=== PATIENT | male | born 1965 | race American Indian/Alaskan Native ===

== ENCOUNTER 2017-10-23 03:26 | Emergency (ER) | payer OTHER ==
[~2017-10-23] VITALS: Ht 182.9 cm; Wt 111.0 kg
[2017-10-23] MEDS ORDERED: sulfamethoxazole/trimethoprim DS (800/160mg) tablet PO ONE (04:20)
[2017-10-23] MEDS ORDERED: bacitracin 15gm ointment TP ONE (04:20)
[2017-10-23] MEDS ORDERED: TETanus/Pertussis (Acell)/Diphther VAC/PF (Tdap-Adult) 0.5ml syringe IM ONE (04:20)
[2017-10-23] MEDS ORDERED: SULF1TAB49 PO (04:24)
[2017-10-23 04:39] VITALS: BP 128/78
== END 2017-10-23 04:43 | disposition home or self-care (01) ==
LOC: ER 03:26
DX: L08.9 Local infection of the skin and subcutaneous tissue, unspecified (principal); Z79.899 Other long term (current) drug therapy
CPT/HCPCS: 90471; 90715; 99284

== ENCOUNTER 2017-10-24 03:53 | Emergency (ER) | payer OTHER ==
[~2017-10-24] VITALS: Ht 188 cm; Wt 120.8 kg
[~2017-10-24 03:53] MED LIST: SULF1TAB49 PO
[2017-10-24 04:06] VITALS: BP 141/90
== END 2017-10-24 04:57 | disposition home or self-care (01) ==
LOC: ER 03:54
DX: L02.512 Cutaneous abscess of left hand (principal); L03.114 Cellulitis of left upper limb; Z91.018 Allergy to other foods; Z79.2 Long term (current) use of antibiotics
CPT/HCPCS: 87070; 87077; 87186; 99284

== ENCOUNTER 2017-12-22 20:47 | Emergency (ER) | payer MEDICAID, OTHER ==
[~2017-12-22] VITALS: Ht 182.9 cm; Wt 119.8 kg
[2017-12-22] MEDS ORDERED: POLOS LEFTEYE (22:52)
[2017-12-22 23:12] VITALS: BP 152/98
[2017-12-23] MEDS ORDERED: polymyxin B sulf/tmp ophth drops 10ml LEFTEYE SCH (08:00)
== END 2017-12-22 23:18 | disposition home or self-care (01) ==
LOC: ER 20:48
DX: H10.9 Unspecified conjunctivitis (principal)
CPT/HCPCS: 99283

== ENCOUNTER 2019-02-28 14:14 | Emergency (ER) | payer MEDICAID, OTHER ==
[~2019-02-28] VITALS: Ht 182.9 cm; Wt 110.0 kg
[2019-02-28] MEDS ORDERED: SULF1TAB49 PO (14:42)
[2019-02-28] MEDS ORDERED: CEPH500C5 PO (14:42)
[2019-02-28 15:06] VITALS: BP 134/69
== END 2019-02-28 15:05 | disposition home or self-care (01) ==
LOC: ER 14:14
DX: J34.0 Abscess, furuncle and carbuncle of nose (principal)
CPT/HCPCS: 99283

== ENCOUNTER 2020-05-25 06:53 | Emergency (ER) | payer MEDICAID, OTHER ==
[~2020-05-25] VITALS: Ht 182.9 cm; Wt 109.1 kg
[2020-05-25] MEDS ORDERED: albuterol 2.5 MG/3 ML nebule NEB ONE (07:00)
[2020-05-25] MEDS ORDERED: dexamethasone sod phosphate 10mg/ml inj IV STA (07:23)
[2020-05-25 08:06] LABS: BASOPHILS # (AUTO) 0.1 X10'3 (0-0.2); BASOPHILS % (AUTO) 0.4 % (0-1); EOSINOPHILS % (AUTO) 0.2 % (0-6); HEMATOCRIT 39.8 % (42.0-52.0); HEMOGLOBIN 13.3 g/dl (14.0-17.9); LYMPHOCYTES # (AUTO) 0.9 X10'3 (1.1-4.8); LYMPHOCYTES % (AUTO) 6.1 % (21-51); MEAN CORPUSCULAR HEMOGLOBIN 29.6 PG (27.0-31.0); MEAN CORPUSCULAR HGB CONC 33.5 g/dL (33.0-36.5); MEAN CORPUSCULAR VOLUME 88.5 FL (78-98); MEAN PLATELET VOLUME 8.1 FL (7.4-10.4); MONOCYTES # (AUTO) 0.8 X10'3 (0-0.9); MONOCYTES % (AUTO) 5.4 % (2-12); NEUTROPHILS # (AUTO) 13.2 X10'3 (1.8-7.7); NEUTROPHILS % (AUTO) 87.9 % (42-75); PLATELET COUNT 249 X10'3 (140-440); WHITE BLOOD COUNT 15.1 X10'3 (4.5-11.0)
[2020-05-25 08:07] LABS: PARTIAL THROMBOPLASTIN TIME 31 SECONDS (22-32)
[2020-05-25 08:10] LABS: ALANINE AMINOTRANSFERASE 145 U/L (12-78); ALBUMIN 2.6 G/DL (3.4-5.0); ALBUMIN/GLOBULIN RATIO 0.5 (1.1-1.5); ALKALINE PHOSPHATASE 110 IU/L (46-116); ANION GAP 20 (8-16); ASPARTATE AMINO TRANSFERASE 277 U/L (10-37); BILIRUBIN,TOTAL 1.9 MG/DL (0.1-1.0); BLOOD UREA NITROGEN 32 MG/DL (7-18); BUN/CREATININE RATIO 12.1 (5.4-32.0); CALCIUM 8.4 MG/DL (8.5-10.1); CHLORIDE 83 MMOL/L (99-107); CREATININE 2.65 MG/DL (0.60-1.10); GLUCOSE 190 MG/DL (70-104); POTASSIUM 4.3 MMOL/L (3.5-5.1); SODIUM 123 MMOL/L (135-145); TOTAL CARBON DIOXIDE 19.7 MMOL/L (24-32); TOTAL PROTEIN 7.6 G/DL (6.4-8.2); eGFR 25 ML/MIN
[2020-05-25 08:14] LABS: ABG BASE EXCESS -5.9 mmol/L (-2.0-2.0); ABG HCO3 18.9 mmol/L (22.0-26.0); ABG OXYGEN SATURATION 86.2 % (94-97); ABG PCO2 (T) 35.4 mmHg (35.0-48.0); ABG PO2 (T) 56.1 mmHg (75.0-100.0); ALLEN'S TEST POSITIVE; FCOHb 1.3 % (0.0-3.9); FLOW 15 L/min; FMetHb 0.3 % (0.0-1.5); FO2Hb 84.8 % (94-97); TOTAL HEMOGLOBIN 13.9 G/dl (14.0-18.0)
[2020-05-25 08:28] LABS: C-REACTIVE PROTEIN 29.05 MG/DL (0.0-0.5)
[2020-05-25] MEDS ORDERED: CefTRIAXone/D5W-Rocephin 1gm 50 ML IV ONE (08:45)
[2020-05-25] MEDS ORDERED: normal saline 1000ml 1,000 ML IV ONE (08:45)
[2020-05-25] MEDS ORDERED: azithromycin/NS 500mg/250ml 250 ML IV ONE (08:45)
[2020-05-25 08:49] LABS: LARGE PLATELETS FEW; NUCLEATED RED BLOOD CELLS 1 /100WBC (0-0); PLATELET ESTIMATE NORMAL; TOTAL CELLS COUNTED 100
[2020-05-25 08:58] LABS: D-DIMER > 35.20 MG/L FEU (0-0.50)
[2020-05-25 10:06] LABS: URINE AMPHETAMINE SCREEN POSITIVE (Neg); URINE BARBITUATE SCREEN NEGATIVE (Neg); URINE BENZODIAZEPINES SCREEN NEGATIVE (Neg); URINE CANNABINOID SCREEN NEGATIVE (Neg); URINE COCAINE SCREEN NEGATIVE (Neg); URINE METHADONE SCREEN NEGATIVE (Neg); URINE OPIATE SCREEN NEGATIVE (Neg); URINE PHENCYCLIDINE SCREEN NEGATIVE (Neg)
[2020-05-25 10:10] VITALS: BP 97/56
[2020-05-25] MEDS ORDERED: furosemide 20 MG/2 ML vial IV ONE (10:20)
[2020-05-25] MEDS ORDERED: furosemide 10 MG/1 ML 10ml inj IV ONE (10:20)
[2020-05-25] MEDS ORDERED: heparin 25,000 UNIT/250ml bag 250 ML IV SCH (10:25)
[2020-05-25] MEDS ORDERED: heparin 10,000 units/1 ML INJ IV PRN ×3 (10:25→10:35)
[2020-05-25] MEDS ORDERED: heparin 10,000 units/1 ML INJ IV ONE ×2 (10:25→10:35)
[2020-05-25] MEDS ORDERED: LORazepam 2 mg/ml vial IV ONE (10:25)
[2020-05-25] MEDS ORDERED: iohexol 350MG/ML 100ml bottle IV ONE (10:33)
--- NOTE | 2020-05-25 10:50 | NUR ---
RT ATTEMPTED TO PLACE PT ON BIPAP. PT REFUSED BIPAP UNTIL HE GOT SOME ATIVAN. RN GAVE ATIVAN AND WHEN RT CAME BACK TO PLACE PT ON BIPAP, HE WAS LEAVING TO GO TO CT. RT WILL COME BACK WHEN PT GETS BACK TO PLACE ON BIPAP.
--- NOTE | 2020-05-25 11:32 | NUR ---
PATIENT FOUND FACE DOWN ON [place] WITH OXYGEN MASK OFF HIS FACE. UNRESPONSIVE AND CYANOTIC. NO PULSE AND NO SPONTANEOUS RESPIRATIONS. YADI PEREZ CALLED.
[2020-05-25] MEDS ORDERED: sodium bicarbonate (8.4%) 1 mEq/ml syringe ONE (12:00)
[2020-05-25] MEDS ORDERED: epiNEPHrine 0.1mg/ml 10ml syringe ONE (12:00)
== END 2020-05-25 17:58 | disposition expired ==
LOC: ER 06:53
DX: I50.9 Heart failure, unspecified (principal); Z20.822 Contact with and (suspected) exposure to COVID-19; J96.01 Acute respiratory failure with hypoxia; R50.9 Fever, unspecified; R05 Cough; Z86.69 Personal history of other diseases of the nervous system and sense organs; Z91.018 Allergy to other foods
CPT/HCPCS: 31500; 36415; 36600; 71045; 71275; 80053; 80305; 82803; 83605; 83615; 83880; 84145; 84484; 85007; 85018; 85025; 85379; 85384; 85610; 85730; 86140; 87040; 87635; 92950; 93005; 94640; 96365; 96368; 96375; 99291; C9803; J0171; J0456; J0696; J1100; J1940; J2060; J7030; Q9967; 94760